=== PATIENT | female | born 1950 | race Caucasian/White ===

== ENCOUNTER → 2017-05-06 | Outpatient (CLI) | payer BC ==
[~2017-05-06] MED LIST: LEVO100T PO; ONDA4TAB10 SL
--- NOTE | 2017-05-06 16:38 | MAMMOGRAPHY REPORT ---
BILATERAL DIGITAL SCREENING MAMMOGRAM WITH CAD: 05/06/2017 CLINICAL HISTORY: Routine screening. Patient has no complaints. TECHNIQUE: Current study was also evaluated with a Computer Aided Detection (CAD) system. Bilateral CC and MLO views were obtained. COMPARISON: Comparison is made to exams dated: 04/08/2016 mammogram, 08/20/2014 mammogram, 06/20/2012 m ammogram, 06/06/2012 mammogram, 04/30/2011 mammogram, and 02/24/2010 mammogram - [facility] nter. BREAST COMPOSITION: There are scattered areas of fibroglandular density in both breasts. FINDINGS: No suspicious masses, calcifications, or areas of architectural distortion are noted in ei ther breast. There has been no significant interval change compared to prior exams. IMPRESSION: ACR BI-RADS CATEGORY 1: NEGATIVE There is no mammographic evidence of malignancy. A 1 year screening mammogram is recommended. The pa tient will receive written notification of the results. Approximately 10% of breast cancers are not detected with mammography. A negative mammographic report should not delay biopsy if a clinically suggestive mass is present. Davida Avila M.D. /:05/06/2017 16:07:31 [employer] Feeder: Zaina SOMMERS(Javier)(Zandra)([place]), [facility] letter sent: Normal 1/2 BI-RADS Code: ACR BI-RADS Category 1: Negative
== END | disposition home or self-care (01) ==
LOC: C.MAMM 14:36
PROVIDERS: ATTEND Family Medicine
DX: Z12.31 Encounter for screening mammogram for malignant neoplasm of breast (principal)

== ENCOUNTER → 2017-10-24 | Outpatient (CLI) | payer BC ==
[~2017-10-24] MED LIST changes: -ONDA4TAB10 SL
--- NOTE | 2017-10-24 09:43 | DIAGNOSTIC IMAGING REPORT ---
C-SPINE ROUTINE 4 OR 5 VIEWS CLINICAL HISTORY: MUSCLE SPASM OF BACK,CERVICALGIA. COMPARISON STUDY: No previous studies for comparison. FINDINGS: Alignment of the cervical spine is anatomic. Vertebral body heights are maintained. There is no fracture or suspicious lesion. There is mild to moderate disc space narrowing at C5-C6 and C6-C7. There is moderate multilevel facet arthrosis with multilevel bony neural foraminal narrowing. IMPRESSION: 1. No cervical spine fracture or subluxation. 2. Moderate multilevel degenerative disc disease and facet arthrosis of the cervical spine. Electronically signed by: Beni Valencia M.D. 10/24/2017 9:42 AM Dictated Date/Time: 10/24/2017 9:41 AM
== END | disposition home or self-care (01) ==
LOC: C.RAD1850 09:21
PROVIDERS: ATTEND Nurse Practitioner Family
DX: M62.830 Muscle spasm of back (principal); M50.322 Other cervical disc degeneration at C5-C6 level; M50.323 Other cervical disc degeneration at C6-C7 level; M47.812 Spondylosis without myelopathy or radiculopathy, cervical region